=== PATIENT | male | born 1955 | race African-American/Black ===

== ENCOUNTER 2023-10-24 16:31 | Inpatient (IN) | payer MEDICARE ==
[2023-10-24 17:22] LABS: #Monocytes 0.7 thou/uL (0.11-0.59); #Neutrophils 5.6 thou/uL (1.40-6.50); %Basophils 0.4 % (0.0-1.0); %Eosinophils 0.5 % (0.0-10.0); %Lymphocytes 20.3 % (21.0-51.0); %Monocytes 8.8 % (0.0-10.0); %Neutrophils 69.9 % (42.0-75.0); Hematocrit 35.4 % (42.0-52.0); Hemoglobin 10.5 g/dL (14.0-18.0); Mean Corpuscular HGB CONC 29.7 g/dL (32.0-36.0); Mean Corpuscular Hemoglobin 24.5 pg (27.0-31.0); Mean Corpuscular Volume 82.7 fl (78.0-98.0); Platelet Count 283 10x3/uL (130-400); RBC Distribution Width 17.7 % (11.5-14.5); Red Blood Cell (RBC) Count 4.28 mill/uL (4.70-6.10)
[2023-10-24 17:43] LABS: ALT (SGPT) 26 U/L (8-55); AST (SGOT) 30 U/L (5-34); Albumin 3.7 g/dL (3.4-4.8); Alkaline Phosphatase 112 U/L (40-110); Anion Gap 20 mmol/L (10-20); BUN (Urea Nitrogen) 44 mg/dL (8.4-25.7); Bilirubin, Total 1.8 mg/dL (0.2-1.2); Calc. Creatinine Clearance 0 mL/min (70-130); Calcium 9.2 mg/dL (7.8-10.44); Carbon Dioxide 22 mmol/L (23-31); Chloride 101 mmol/L (98-107); Estimated GFR 21; Globulin 3.3 g/dL (2.4-3.5); Glucose 256 mg/dL (80-115); Potassium 4.5 mmol/L (3.5-5.1); Sodium 138 mmol/L (136-145)
[2023-10-24 17:47] LABS: Troponin I 0.037 ng/mL (< 0.028)
[2023-10-24] MEDS ORDERED: Furosemide 20 MG (2 mL) VIAL ONE (17:53)
[2023-10-24] MEDS ORDERED: Dextrose 50% Abboject 50 ML SYRINGE SLOW IVP PRN (19:48)
[2023-10-24] MEDS ORDERED: Dextrose 5% in Water 1,000 ML IV PRN (19:48)
[2023-10-24] MEDS ORDERED: Acetaminophen 650 MG Suppository PR PRN (19:48)
[2023-10-24] MEDS ORDERED: Ondansetron ODT 4 MG TAB PO PRN (19:48)
[2023-10-24] MEDS ORDERED: Ondansetron PF 4 MG/2 ML Vial IVP PRN (19:48)
[2023-10-24] MEDS ORDERED: Glucagon 1 MG/ML KIT IM PRN (19:48)
[2023-10-24 21:23] LABS: Troponin I 0.049 ng/mL (< 0.028)
[2023-10-24 21:45] LABS: INR-International Normal Ratio 2.3; Prothrombin Time 26.2 sec (12.0-14.7)
[2023-10-24] MEDS ORDERED: Warfarin Sodium 7.5 MG TAB PO SCH (23:00)
[2023-10-24 23:25] LABS: Troponin I 0.037 ng/mL (< 0.028)
[2023-10-25 04:47] LABS: Bacteria/HPF None Seen HPF (None Seen); Bilirubin Negative (Negative); Blood, Urine Trace (Negative); Clarity Clear (Clear); Glucose, Urine (Dipstick) Greater than 1000 mg/dL (Negative); Ketone, Urine Negative (Negative); Leukocyte Negative Leu/uL (Negative); Nitrite Negative (Negative); Protein, Urine (Dipstick) 30 mg/dL (Neg-Trace); RBC/HPF 0-3 HPF (0-3); Specific Gravity, Urine 1.018 (1.002-1.036); Squamous Epithelial 0-3 HPF (0-3); Urobilinogen Normal mg/dL (Less than 2); pH, Urine 5.5 (5.0-9.0)
[2023-10-25 05:13] LABS: #Eosinphils 0.1 thou/uL (0.0-0.7); #Monocytes 0.7 thou/uL (0.11-0.59); #Neutrophils 4.5 thou/uL (1.40-6.50); %Basophils 0.4 % (0.0-1.0); %Eosinophils 1.2 % (0.0-10.0); %Monocytes 10.6 % (0.0-10.0); %Neutrophils 65.2 % (42.0-75.0); Hematocrit 34.4 % (42.0-52.0); Mean Corpuscular HGB CONC 29.1 g/dL (32.0-36.0); Mean Corpuscular Hemoglobin 24.3 pg (27.0-31.0); Mean Corpuscular Volume 83.5 fl (78.0-98.0); Mean Platelet Volume 10.8 fL (7.4-10.4); Platelet Count 263 10x3/uL (130-400); RBC Distribution Width 18.1 % (11.5-14.5); Red Blood Cell (RBC) Count 4.12 mill/uL (4.70-6.10); White Blood Cell (WBC) Count 6.9 10x3/uL (4.8-10.8)
[2023-10-25 05:37] LABS: Anion Gap 16 mmol/L (10-20); BUN (Urea Nitrogen) 48 mg/dL (8.4-25.7); Calc. Creatinine Clearance 40 mL/min (70-130); Calcium 8.5 mg/dL (7.8-10.44); Carbon Dioxide 23 mmol/L (23-31); Chloride 102 mmol/L (98-107); Estimated GFR 21; Glucose 350 mg/dL (80-115); Potassium 4.4 mmol/L (3.5-5.1); Sodium 137 mmol/L (136-145)
[2023-10-25] MEDS: Furosemide 40 MG (4 mL) VIAL SLOW IVP SCH ×2 (05:46→17:06)
[2023-10-25 05:47] LABS: INR-International Normal Ratio 2.2
[2023-10-25] MEDS: HumaLOG 300 UNITS/3 ML VIAL SC PRN ×4 (06:02→21:57)
[2023-10-25] MEDS: Amiodarone 200 MG TAB PO SCH (10:55)
[2023-10-25] MEDS: Aspirin 81 mg Enteric Coated Tablet PO SCH (10:55)
[2023-10-25] MEDS: Empagliflozin 10 MG TAB PO SCH (10:55)
[2023-10-25] MEDS: Insulin Glargine 30 UNITS/0.3 ML VIAL SC SCH ×3 (10:55→18:31)
[2023-10-25] MEDS: Albumin 25% 25 GM (100 mL) BOT IVPB SCH ×2 (14:14→18:30)
[2023-10-25] MEDS ORDERED: Warfarin Sodium 7.5 MG TAB PO SCH (17:00)
[2023-10-25] MEDS: Rosuvastatin 20 MG TAB PO SCH (21:56)
[2023-10-25 21:57] LABS: RBC Count-Automated (BF) Greater than 890000 /cu.mm; WBC/Nucleated-Auto (BF) 632 /cu.mm
[2023-10-25] MEDS: Latanoprost 0.005% Ophth Soln 2.5 ml Bottle EA EYE SCH (21:58)
[2023-10-25 22:05] LABS: Body Fluid Source Thoracentesis Fluid; Tube # EDTA
[2023-10-25] MEDS: Allopurinol 100 MG TAB PO SCH (22:05)
[2023-10-25 22:06] LABS: BF Color Red; Clarity Cloudy/Turbid (Clear)
[2023-10-25 22:08] LABS: BF Segmented Neutrophils 23 %; Cell Count Non Hematic 65 %; Eosinophils 1 %; Lymphocytes 11 %
[2023-10-26] MEDS: Albumin 25% 25 GM (100 mL) BOT IVPB SCH ×2 (00:44→05:20)
[2023-10-26] MEDS: Furosemide 40 MG (4 mL) VIAL SLOW IVP SCH ×2 (05:20→14:01)
[2023-10-26 05:47] LABS: #Eosinphils 0.1 thou/uL (0.0-0.7); #Monocytes 0.8 thou/uL (0.11-0.59); #Neutrophils 3.9 thou/uL (1.40-6.50); %Basophils 0.5 % (0.0-1.0); %Eosinophils 1.5 % (0.0-10.0); %Lymphocytes 25.2 % (21.0-51.0); %Monocytes 12.8 % (0.0-10.0); %Neutrophils 59.8 % (42.0-75.0); Hematocrit 36.4 % (42.0-52.0); Hemoglobin 10.6 g/dL (14.0-18.0); Mean Corpuscular HGB CONC 29.1 g/dL (32.0-36.0); Mean Corpuscular Hemoglobin 24.4 pg (27.0-31.0); Mean Corpuscular Volume 83.7 fl (78.0-98.0); Mean Platelet Volume 12.3 fL (7.4-10.4); Platelet Count 184 10x3/uL (130-400); RBC Distribution Width 18.1 % (11.5-14.5); Red Blood Cell (RBC) Count 4.35 mill/uL (4.70-6.10); White Blood Cell (WBC) Count 6.6 10x3/uL (4.8-10.8)
[2023-10-26 05:59] LABS: Anion Gap 16 mmol/L (10-20); BUN (Urea Nitrogen) 51 mg/dL (8.4-25.7); Calc. Creatinine Clearance 43 mL/min (70-130); Carbon Dioxide 24 mmol/L (23-31); Chloride 103 mmol/L (98-107); Estimated GFR 22; Glucose 124 mg/dL (80-115); Magnesium 2.3 mg/dL (1.6-2.6); Potassium 4.1 mmol/L (3.5-5.1); Sodium 139 mmol/L (136-145)
[2023-10-26 07:19] LABS: INR-International Normal Ratio 2.4; Prothrombin Time 27.3 sec (12.0-14.7)
[2023-10-26] MEDS: Insulin Glargine 30 UNITS/0.3 ML VIAL SC SCH ×3 (09:13→17:29)
[2023-10-26] MEDS: Allopurinol 100 MG TAB PO SCH ×2 (09:14→21:26)
[2023-10-26] MEDS: Amiodarone 200 MG TAB PO SCH (09:15)
[2023-10-26] MEDS: Empagliflozin 10 MG TAB PO SCH (09:15)
[2023-10-26] MEDS: Aspirin 81 mg Enteric Coated Tablet PO SCH (09:15)
[2023-10-26] MEDS: HumaLOG 300 UNITS/3 ML VIAL SC PRN ×3 (14:00→21:25)
[2023-10-26] MEDS ORDERED: Warfarin Sodium 3.75 MG HALF.TAB PO SCH (17:00)
[2023-10-26] MEDS ORDERED: Warfarin Sodium 7.5 MG TAB PO SCH (17:00)
[2023-10-26 19:45] LABS: Prothrombin Time 23.2 sec (12.0-14.7)
[2023-10-26 19:46] LABS: PTT 33.8 sec (22.9-36.1)
[2023-10-26] MEDS: Latanoprost 0.005% Ophth Soln 2.5 ml Bottle EA EYE SCH (21:24)
[2023-10-26] MEDS: Enoxaparin 120 MG/0.8 ML SYRINGE SC SCH (21:25)
[2023-10-26] MEDS: Rosuvastatin 20 MG TAB PO SCH (21:26)
[2023-10-27] MEDS: Furosemide 40 MG (4 mL) VIAL SLOW IVP SCH ×2 (06:21→13:25)
[2023-10-27 07:20] LABS: #Eosinphils 0.1 thou/uL (0.0-0.7); #Monocytes 0.8 thou/uL (0.11-0.59); #Neutrophils 4.1 thou/uL (1.40-6.50); %Basophils 0.5 % (0.0-1.0); %Eosinophils 1.1 % (0.0-10.0); %Lymphocytes 22.6 % (21.0-51.0); %Monocytes 12.5 % (0.0-10.0); %Neutrophils 63.1 % (42.0-75.0); Hematocrit 36.4 % (42.0-52.0); Hemoglobin 10.5 g/dL (14.0-18.0); Mean Corpuscular HGB CONC 28.8 g/dL (32.0-36.0); Mean Corpuscular Hemoglobin 24.2 pg (27.0-31.0); Mean Corpuscular Volume 84.1 fl (78.0-98.0); Mean Platelet Volume 10.8 fL (7.4-10.4); Platelet Count 238 10x3/uL (130-400); RBC Distribution Width 18.2 % (11.5-14.5); Red Blood Cell (RBC) Count 4.33 mill/uL (4.70-6.10); White Blood Cell (WBC) Count 6.4 10x3/uL (4.8-10.8)
[2023-10-27 07:50] LABS: INR-International Normal Ratio 2.5
[2023-10-27 07:54] LABS: Anion Gap 15 mmol/L (10-20); BUN (Urea Nitrogen) 52 mg/dL (8.4-25.7); Calc. Creatinine Clearance 41 mL/min (70-130); Calcium 9.2 mg/dL (7.8-10.44); Carbon Dioxide 25 mmol/L (23-31); Chloride 104 mmol/L (98-107); Estimated GFR 21; Glucose 135 mg/dL (80-115); Magnesium 2.2 mg/dL (1.6-2.6); Potassium 3.6 mmol/L (3.5-5.1); Sodium 140 mmol/L (136-145)
[2023-10-27] MEDS: Insulin Glargine 30 UNITS/0.3 ML VIAL SC SCH ×3 (08:49→19:37)
[2023-10-27] MEDS: Allopurinol 100 MG TAB PO SCH ×2 (08:50→20:27)
[2023-10-27] MEDS: Aspirin 81 mg Enteric Coated Tablet PO SCH (08:50)
[2023-10-27] MEDS: Enoxaparin 120 MG/0.8 ML SYRINGE SC SCH (08:50)
[2023-10-27] MEDS: Amiodarone 200 MG TAB PO SCH (08:51)
[2023-10-27] MEDS: Empagliflozin 10 MG TAB PO SCH (08:51)
[2023-10-27] MEDS: Acetaminophen 325 MG TAB PO PRN (09:02)
[2023-10-27] MEDS: Albumin 25% 25 GM (100 mL) BOT IVPB SCH ×3 (12:09→23:54)
[2023-10-27] MEDS: HumaLOG 300 UNITS/3 ML VIAL SC PRN ×3 (13:26→22:08)
[2023-10-27] MEDS ORDERED: Warfarin Sodium 3.75 MG HALF.TAB PO SCH (17:00)
[2023-10-27] MEDS: HumaLOG 300 UNITS/3 ML VIAL SC SCH (19:37)
[2023-10-27] MEDS: Latanoprost 0.005% Ophth Soln 2.5 ml Bottle EA EYE SCH (20:25)
[2023-10-27] MEDS: Rosuvastatin 20 MG TAB PO SCH (20:25)
[2023-10-28 05:12] LABS: #Eosinphils 0.1 thou/uL (0.0-0.7); #Monocytes 0.6 thou/uL (0.11-0.59); #Neutrophils 4.4 thou/uL (1.40-6.50); %Basophils 0.6 % (0.0-1.0); %Eosinophils 1.8 % (0.0-10.0); %Lymphocytes 21.9 % (21.0-51.0); %Monocytes 9.1 % (0.0-10.0); %Neutrophils 66.4 % (42.0-75.0); Hematocrit 34.6 % (42.0-52.0); Hemoglobin 10.1 g/dL (14.0-18.0); Mean Corpuscular HGB CONC 29.2 g/dL (32.0-36.0); Mean Corpuscular Hemoglobin 23.8 pg (27.0-31.0); Mean Platelet Volume 10.9 fL (7.4-10.4); Platelet Count 225 10x3/uL (130-400); RBC Distribution Width 17.9 % (11.5-14.5); Red Blood Cell (RBC) Count 4.25 mill/uL (4.70-6.10); White Blood Cell (WBC) Count 6.6 10x3/uL (4.8-10.8)
[2023-10-28 05:33] LABS: Anion Gap 15 mmol/L (10-20); BUN (Urea Nitrogen) 51 mg/dL (8.4-25.7); Calc. Creatinine Clearance 42 mL/min (70-130); Calcium 8.9 mg/dL (7.8-10.44); Carbon Dioxide 24 mmol/L (23-31); Chloride 102 mmol/L (98-107); Estimated GFR 22; Glucose 155 mg/dL (80-115); Magnesium 2.2 mg/dL (1.6-2.6); Potassium 3.4 mmol/L (3.5-5.1); Sodium 138 mmol/L (136-145)
[2023-10-28 05:46] LABS: INR-International Normal Ratio 2.5
[2023-10-28] MEDS: Albumin 25% 25 GM (100 mL) BOT IVPB SCH (05:48)
[2023-10-28] MEDS: Furosemide 40 MG (4 mL) VIAL SLOW IVP SCH ×2 (05:48→14:32)
[2023-10-28 06:04] LABS: Mean Corpuscular Volume 81.4 fl (78.0-98.0)
[2023-10-28] MEDS: Acetaminophen 325 MG TAB PO PRN ×2 (06:07→20:43)
[2023-10-28] MEDS: Insulin Glargine 30 UNITS/0.3 ML VIAL SC SCH ×3 (08:28→18:56)
[2023-10-28] MEDS: HumaLOG 300 UNITS/3 ML VIAL SC SCH ×3 (08:28→18:53)
[2023-10-28] MEDS: Allopurinol 100 MG TAB PO SCH ×2 (08:29→20:43)
[2023-10-28] MEDS: Aspirin 81 mg Enteric Coated Tablet PO SCH (08:29)
[2023-10-28] MEDS: Amiodarone 200 MG TAB PO SCH (08:29)
[2023-10-28] MEDS: Empagliflozin 10 MG TAB PO SCH (08:29)
[2023-10-28] MEDS: HumaLOG 300 UNITS/3 ML VIAL SC PRN ×4 (08:31→20:44)
[2023-10-28] MEDS ORDERED: Potassium Chloride 20 MEQ TAB PO SCH (10:45)
[2023-10-28] MEDS: Latanoprost 0.005% Ophth Soln 2.5 ml Bottle EA EYE SCH (20:43)
[2023-10-28] MEDS: Rosuvastatin 20 MG TAB PO SCH (20:43)
[2023-10-29 04:51] LABS: INR-International Normal Ratio 2.1; Prothrombin Time 24.6 sec (12.0-14.7)
[2023-10-29 04:59] LABS: Anion Gap 17 mmol/L (10-20); BUN (Urea Nitrogen) 50 mg/dL (8.4-25.7); Calc. Creatinine Clearance 43 mL/min (70-130); Calcium 9.1 mg/dL (7.8-10.44); Carbon Dioxide 26 mmol/L (23-31); Chloride 102 mmol/L (98-107); Estimated GFR 22; Glucose 90 mg/dL (80-115); Potassium 3.6 mmol/L (3.5-5.1); Sodium 141 mmol/L (136-145)
[2023-10-29] MEDS: Furosemide 40 MG (4 mL) VIAL SLOW IVP SCH ×2 (05:46→14:53)
[2023-10-29] MEDS: Aspirin 81 mg Enteric Coated Tablet PO SCH (08:19)
[2023-10-29] MEDS: Empagliflozin 10 MG TAB PO SCH (08:20)
[2023-10-29] MEDS: Amiodarone 200 MG TAB PO SCH (08:20)
[2023-10-29] MEDS: Allopurinol 100 MG TAB PO SCH ×2 (08:20→20:18)
[2023-10-29] MEDS: Insulin Glargine 30 UNITS/0.3 ML VIAL SC SCH ×3 (08:21→18:23)
[2023-10-29] MEDS: HumaLOG 300 UNITS/3 ML VIAL SC SCH ×3 (08:29→18:23)
[2023-10-29] MEDS: Acetaminophen 325 MG TAB PO PRN (20:18)
[2023-10-29] MEDS: Latanoprost 0.005% Ophth Soln 2.5 ml Bottle EA EYE SCH (20:18)
[2023-10-29] MEDS: Rosuvastatin 20 MG TAB PO SCH (20:19)
[2023-10-30] MEDS: Furosemide 40 MG (4 mL) VIAL SLOW IVP SCH ×2 (05:11→14:52)
[2023-10-30] MEDS ORDERED: CEFAZOLIN 2 GM in Sodium Chloride 0.9% 100 ML IVPB SCH (06:00)
[2023-10-30] MEDS ORDERED: Bupivacaine PF 0.5% 30 ML VIAL ONE (06:18)
[2023-10-30] MEDS ORDERED: EPINEPHrine 1 MG/ML VIAL ONE (06:18)
[2023-10-30] MEDS ORDERED: Lidocaine 1% MPF 2 ML VIAL ONE (07:02)
[2023-10-30] MEDS ORDERED: CEFAZOLIN 2 GM VIAL ONE (07:24)
[2023-10-30] MEDS ORDERED: Sodium Chloride 0.9% 100 ML ONE (07:24)
[2023-10-30] MEDS ORDERED: PROPOFOL 20 ML ONE (07:26)
[2023-10-30] MEDS ORDERED: Ketamine In 0.9 % NaCl 50 MG/5 ML SYRINGE ONE (07:26)
[2023-10-30] MEDS ORDERED: Norepinephrine 4 MG/4 ML VIAL ONE (07:27)
[2023-10-30] MEDS ORDERED: Ondansetron PF 4 MG/2 ML Vial ONE (07:27)
[2023-10-30] MEDS ORDERED: Rocuronium Bromide 10 MG/ML (10ML VIAL) ONE (07:27)
[2023-10-30] MEDS ORDERED: Lidocaine 1% PF 5 ML VIAL ONE (07:27)
[2023-10-30] MEDS ORDERED: fentaNYL 50 mcg/mL 1 mL Vial ONE ×4 (08:13→16:12)
[2023-10-30] MEDS ORDERED: SUGAMMADEX SODIUM 200 MG/2 ML VIAL ONE (08:13)
[2023-10-30] MEDS ORDERED: traMADol HCl 50 MG TAB PO PRN (08:24)
[2023-10-30] MEDS ORDERED: fentaNYL 50 mcg/mL 1 mL Vial SLOW IVP PRN (08:24)
[2023-10-30] MEDS ORDERED: Ondansetron HCl/PF 4 MG/2 ML Vial IVP PRN (08:45)
[2023-10-30] MEDS ORDERED: Promethazine HCl 25 MG/ML VIAL IM PRN (08:45)
[2023-10-30] MEDS ORDERED: Albumin 5% 0 ML ONE ×2 (09:16→23:51)
[2023-10-30] MEDS ORDERED: Albumin 5% 250 ML ONE ×2 (09:18→19:30)
[2023-10-30] MEDS ORDERED: ePHEDrine Sulfate 50 MG/10 ML VIAL ONE (09:26)
[2023-10-30] MEDS ORDERED: Furosemide 20 MG (2 mL) VIAL ONE ×3 (09:59→14:50)
[2023-10-30 10:07] LABS: Actual Bicarbonate (HCO3a) 23.8 mEq/L (22-28); Base Excess (BEa) -3.1 mEq/L (-2.0 to +3.0); CO2 Tension 50.8 mmHg (35.0-45.0); Calcium, Ionized (arterial) 1.16 mmol/L (1.12-1.30); Carboxyhemoglobin (COHb) 0.8 gm% (0.0-3.0); Hematocrit-ABG 35 % (42.0-52.0); Hemoglobin (Hb) 11.9 g/dL (14.0-18.0); O2 Tension (PaO2), arterial 89.5 mmHg (> 80.0); Potassium - ABG Lab 3.93 mmol/L (3.70-5.30); pH, Arterial 7.289 (7.35-7.45)
[2023-10-30] MEDS ORDERED: Ipratropium/Albuterol 3 ML NEB ONE (10:18)
[2023-10-30 10:20] LABS: Puncture Site RBA
[2023-10-30 11:04] LABS: #Monocytes 0.6 thou/uL (0.11-0.59); #Neutrophils 7.1 thou/uL (1.40-6.50); %Basophils 0.2 % (0.0-1.0); %Eosinophils 0.3 % (0.0-10.0); %Lymphocytes 17.2 % (21.0-51.0); %Monocytes 6.3 % (0.0-10.0); %Neutrophils 75.6 % (42.0-75.0); Hemoglobin 10.7 g/dL (14.0-18.0); Mean Corpuscular HGB CONC 28.2 g/dL (32.0-36.0); Mean Corpuscular Hemoglobin 23.9 pg (27.0-31.0); Mean Corpuscular Volume 84.8 fl (78.0-98.0); Mean Platelet Volume 10.6 fL (7.4-10.4); Platelet Count 282 10x3/uL (130-400); RBC Distribution Width 18.1 % (11.5-14.5); Red Blood Cell (RBC) Count 4.48 mill/uL (4.70-6.10); White Blood Cell (WBC) Count 9.4 10x3/uL (4.8-10.8)
[2023-10-30 11:19] LABS: Anion Gap 16 mmol/L (10-20); BUN (Urea Nitrogen) 57 mg/dL (8.4-25.7); Calc. Creatinine Clearance 38 mL/min (70-130); Calcium 8.9 mg/dL (7.8-10.44); Carbon Dioxide 25 mmol/L (23-31); Chloride 102 mmol/L (98-107); Estimated GFR 19; Glucose 119 mg/dL (80-115); Potassium 3.8 mmol/L (3.5-5.1)
[2023-10-30 11:25] LABS: Troponin I 0.052 ng/mL (< 0.028)
[2023-10-30 11:26] LABS: Sodium 141 mmol/L (136-145)
[2023-10-30] MEDS: Empagliflozin 10 MG TAB PO SCH (11:48)
[2023-10-30] MEDS: Allopurinol 100 MG TAB PO SCH ×2 (11:48→21:52)
[2023-10-30] MEDS: Insulin Glargine 30 UNITS/0.3 ML VIAL SC SCH ×3 (11:49→20:09)
[2023-10-30] MEDS: HumaLOG 300 UNITS/3 ML VIAL SC SCH ×3 (11:50→20:08)
[2023-10-30 12:27] LABS: CellaVision Operator ID LAB.GE; Platelet Adequacy Comment Platelets Normal; Polychromasia MODERATE = 3-4 cells HPF (0-2)
[2023-10-30] MEDS: Amiodarone 200 MG TAB PO SCH (14:48)
[2023-10-30] MEDS: Aspirin 81 mg Enteric Coated Tablet PO SCH (14:49)
[2023-10-30 16:12] LABS: INR-International Normal Ratio 1.7
[2023-10-30] MEDS: fentaNYL 50 mcg/mL 1 mL Vial SLOW IVP PRN (16:13)
[2023-10-30 16:27] LABS: Anion Gap 16 mmol/L (10-20); BUN (Urea Nitrogen) 59 mg/dL (8.4-25.7); Calc. Creatinine Clearance 39 mL/min (70-130); Carbon Dioxide 25 mmol/L (23-31); Chloride 102 mmol/L (98-107); Estimated GFR 20; Glucose 124 mg/dL (80-115); Potassium 4.2 mmol/L (3.5-5.1); Sodium 139 mmol/L (136-145)
[2023-10-30] MEDS: Albumin 25% 25 GM (100 mL) BOT IVPB SCH (19:26)
[2023-10-30] MEDS: HumaLOG 300 UNITS/3 ML VIAL SC PRN (20:08)
[2023-10-30] MEDS: Latanoprost 0.005% Ophth Soln 2.5 ml Bottle EA EYE SCH (21:27)
[2023-10-30] MEDS: Rosuvastatin 20 MG TAB PO SCH (21:52)
[2023-10-31] MEDS: Albumin 25% 25 GM (100 mL) BOT IVPB SCH ×3 (00:10→12:45)
[2023-10-31] MEDS: fentaNYL 50 mcg/mL 1 mL Vial SLOW IVP PRN (01:57)
[2023-10-31] MEDS ORDERED: fentaNYL 50 mcg/mL 1 mL Vial ONE (01:57)
[2023-10-31 03:48] LABS: #Monocytes 0.9 thou/uL (0.11-0.59); #Neutrophils 7.1 thou/uL (1.40-6.50); %Basophils 0.2 % (0.0-1.0); %Eosinophils 0.2 % (0.0-10.0); %Monocytes 9.6 % (0.0-10.0); %Neutrophils 78.8 % (42.0-75.0); Hemoglobin 9.2 g/dL (14.0-18.0); Mean Corpuscular HGB CONC 29.7 g/dL (32.0-36.0); Mean Corpuscular Hemoglobin 24.2 pg (27.0-31.0); Mean Corpuscular Volume 81.6 fl (78.0-98.0); Mean Platelet Volume 11.3 fL (7.4-10.4); Platelet Count 215 10x3/uL (130-400); RBC Distribution Width 18.2 % (11.5-14.5)
[2023-10-31] MEDS ORDERED: traMADol HCl 50 MG TAB ONE ×2 (03:51→07:38)
[2023-10-31] MEDS: traMADol HCl 50 MG TAB PO PRN ×2 (03:53→07:42)
[2023-10-31 04:07] LABS: INR-International Normal Ratio 1.8; Prothrombin Time 21.7 sec (12.0-14.7)
[2023-10-31 04:13] LABS: BUN (Urea Nitrogen) 59 mg/dL (8.4-25.7); Calc. Creatinine Clearance 39 mL/min (70-130); Calcium 8.5 mg/dL (7.8-10.44); Carbon Dioxide 22 mmol/L (23-31); Chloride 101 mmol/L (98-107); Estimated GFR 20; Glucose 390 mg/dL (80-115); Potassium 4.2 mmol/L (3.5-5.1); Sodium 138 mmol/L (136-145)
[2023-10-31 04:16] LABS: Anion Gap 19 mmol/L (10-20)
[2023-10-31] MEDS ORDERED: Furosemide 20 MG (2 mL) VIAL ONE (05:59)
[2023-10-31] MEDS: Furosemide 40 MG (4 mL) VIAL SLOW IVP SCH (06:06)
[2023-10-31] MEDS ORDERED: Insulin Glargine 30 UNITS/0.3 ML VIAL SC SCH ×2 (08:00→21:00)
[2023-10-31] MEDS: Amiodarone 200 MG TAB PO SCH (08:10)
[2023-10-31] MEDS: Allopurinol 100 MG TAB PO SCH ×2 (08:10→22:39)
[2023-10-31] MEDS: Aspirin 81 mg Enteric Coated Tablet PO SCH (08:11)
[2023-10-31] MEDS: Empagliflozin 10 MG TAB PO SCH (08:11)
[2023-10-31] MEDS: HumaLOG 300 UNITS/3 ML VIAL SC SCH ×3 (08:16→22:35)
[2023-10-31] MEDS ORDERED: Albumin 5% 0 ML ONE (11:43)
[2023-10-31] MEDS: Furosemide 40 MG TAB PO SCH (13:37)
[2023-10-31] MEDS: Latanoprost 0.005% Ophth Soln 2.5 ml Bottle EA EYE SCH (22:38)
[2023-10-31] MEDS: Rosuvastatin 20 MG TAB PO SCH (22:39)
[2023-11-01 04:49] LABS: Platelet Count 228 10x3/uL (130-400)
[2023-11-01 05:03] LABS: INR-International Normal Ratio 1.7; Prothrombin Time 20.8 sec (12.0-14.7)
[2023-11-01 05:26] LABS: Anion Gap 16 mmol/L (10-20); BUN (Urea Nitrogen) 61 mg/dL (8.4-25.7); Calc. Creatinine Clearance 39 mL/min (70-130); Carbon Dioxide 25 mmol/L (23-31); Chloride 100 mmol/L (98-107); Potassium 4.6 mmol/L (3.5-5.1); Sodium 136 mmol/L (136-145)
[2023-11-01 05:27] LABS: Calcium 9.3 mg/dL (7.8-10.44); Estimated GFR 20; Glucose 193 mg/dL (80-115)
[2023-11-01] MEDS: Furosemide 40 MG TAB PO SCH ×2 (05:56→08:16)
[2023-11-01] MEDS ORDERED: Furosemide 40 MG (4 mL) VIAL SLOW IVP SCH (06:00)
[2023-11-01] MEDS: Allopurinol 100 MG TAB PO SCH ×2 (08:16→21:14)
[2023-11-01] MEDS: Amiodarone 200 MG TAB PO SCH (08:17)
[2023-11-01] MEDS: Aspirin 81 mg Enteric Coated Tablet PO SCH (08:17)
[2023-11-01] MEDS: Empagliflozin 10 MG TAB PO SCH (08:17)
[2023-11-01] MEDS: HumaLOG 300 UNITS/3 ML VIAL SC SCH ×3 (08:18→18:16)
[2023-11-01] MEDS: Insulin Glargine 30 UNITS/0.3 ML VIAL SC SCH ×2 (08:22→21:14)
[2023-11-01] MEDS ORDERED: [UNRECOGNIZED DRUG - REMARK] PO SCH (09:00)
[2023-11-01] MEDS: HumaLOG 300 UNITS/3 ML VIAL SC PRN ×2 (12:42→18:17)
[2023-11-01] MEDS: Senokot S 8.6-50 MG TAB PO PRN (16:02)
[2023-11-01] MEDS: Rosuvastatin 20 MG TAB PO SCH (21:14)
[2023-11-01] MEDS: Latanoprost 0.005% Ophth Soln 2.5 ml Bottle EA EYE SCH (21:14)
[2023-11-02 05:17] LABS: #Eosinphils 0.2 thou/uL (0.0-0.7); #Monocytes 1.3 thou/uL (0.11-0.59); #Neutrophils 5.7 thou/uL (1.40-6.50); %Basophils 0.3 % (0.0-1.0); %Eosinophils 1.9 % (0.0-10.0); %Lymphocytes 25.6 % (21.0-51.0); %Monocytes 13.5 % (0.0-10.0); %Neutrophils 58.4 % (42.0-75.0); Hematocrit 32.2 % (42.0-52.0); Hematocrit 33.3 % (42.0-52.0); Hemoglobin 9.5 g/dL (14.0-18.0); Hemoglobin 9.7 g/dL (14.0-18.0); Mean Corpuscular HGB CONC 29.1 g/dL (32.0-36.0); Mean Corpuscular Hemoglobin 23.6 pg (27.0-31.0); Mean Platelet Volume 10.8 fL (7.4-10.4); Platelet Count 255 10x3/uL (130-400); Platelet Count 258 10x3/uL (130-400); RBC Distribution Width 18.5 % (11.5-14.5); Red Blood Cell (RBC) Count 4.11 mill/uL (4.70-6.10); White Blood Cell (WBC) Count 9.8 10x3/uL (4.8-10.8)
[2023-11-02 05:30] LABS: INR-International Normal Ratio 1.7; Prothrombin Time 20.8 sec (12.0-14.7)
[2023-11-02 05:47] LABS: Anion Gap 16 mmol/L (10-20); BUN (Urea Nitrogen) 66 mg/dL (8.4-25.7); Calc. Creatinine Clearance 45 mL/min (70-130); Calcium 9.2 mg/dL (7.8-10.44); Carbon Dioxide 25 mmol/L (23-31); Chloride 100 mmol/L (98-107); Estimated GFR 21; Glucose 68 mg/dL (80-115); Potassium 3.9 mmol/L (3.5-5.1); Sodium 137 mmol/L (136-145)
[2023-11-02] MEDS: hydrALAZINE 25 MG TAB PO SCH ×3 (07:50→21:10)
[2023-11-02] MEDS: Furosemide 40 MG TAB PO SCH ×2 (07:50→13:30)
[2023-11-02] MEDS: Allopurinol 100 MG TAB PO SCH ×2 (07:50→21:10)
[2023-11-02] MEDS: Aspirin 81 mg Enteric Coated Tablet PO SCH (07:50)
[2023-11-02] MEDS: Amiodarone 200 MG TAB PO SCH (07:50)
[2023-11-02] MEDS: Empagliflozin 10 MG TAB PO SCH (07:50)
[2023-11-02] MEDS: Senokot S 8.6-50 MG TAB PO PRN (11:24)
[2023-11-02] MEDS: HumaLOG 300 UNITS/3 ML VIAL SC SCH ×3 (11:46→17:55)
[2023-11-02] MEDS: HumaLOG 300 UNITS/3 ML VIAL SC PRN (13:31)
[2023-11-02] MEDS ORDERED: Polyethylene Glycol 3350 17 GM Packet PO SCH (16:30)
[2023-11-02] MEDS: Insulin Glargine 30 UNITS/0.3 ML VIAL SC SCH (21:10)
[2023-11-02] MEDS: Rosuvastatin 20 MG TAB PO SCH (21:10)
[2023-11-02] MEDS: Latanoprost 0.005% Ophth Soln 2.5 ml Bottle EA EYE SCH (21:11)
[2023-11-02] MEDS: Lidocaine 4% Topical Sol 50 ML BOT TOP SCH (21:12)
[2023-11-03 04:02] LABS: #Eosinphils 0.2 thou/uL (0.0-0.7); #Monocytes 0.8 thou/uL (0.11-0.59); #Neutrophils 4.7 thou/uL (1.40-6.50); %Basophils 0.4 % (0.0-1.0); %Eosinophils 2.2 % (0.0-10.0); %Lymphocytes 24.4 % (21.0-51.0); %Neutrophils 61.6 % (42.0-75.0); Hematocrit 32.9 % (42.0-52.0); Hemoglobin 9.7 g/dL (14.0-18.0); Mean Corpuscular HGB CONC 29.5 g/dL (32.0-36.0); Mean Corpuscular Hemoglobin 23.5 pg (27.0-31.0); Mean Corpuscular Volume 79.9 fl (78.0-98.0); Mean Platelet Volume 10.4 fL (7.4-10.4); Platelet Count 248 10x3/uL (130-400); RBC Distribution Width 18.4 % (11.5-14.5); Red Blood Cell (RBC) Count 4.12 mill/uL (4.70-6.10); White Blood Cell (WBC) Count 7.6 10x3/uL (4.8-10.8)
[2023-11-03 04:20] LABS: Anion Gap 15 mmol/L (10-20); BUN (Urea Nitrogen) 70 mg/dL (8.4-25.7); Calc. Creatinine Clearance 43 mL/min (70-130); Calcium 8.8 mg/dL (7.8-10.44); Carbon Dioxide 26 mmol/L (23-31); Chloride 98 mmol/L (98-107); Estimated GFR 20; Glucose 119 mg/dL (80-115); Potassium 3.6 mmol/L (3.5-5.1); Sodium 135 mmol/L (136-145)
[2023-11-03 05:39] LABS: INR-International Normal Ratio 1.6; Prothrombin Time 19.2 sec (12.0-14.7)
[2023-11-03] MEDS ORDERED: Polyethylene Glycol 3350 17 GM Packet PO SCH (09:00)
[2023-11-03] MEDS: Furosemide 40 MG TAB PO SCH ×2 (09:54→14:43)
[2023-11-03] MEDS: Allopurinol 100 MG TAB PO SCH ×2 (09:54→20:45)
[2023-11-03] MEDS: Aspirin 81 mg Enteric Coated Tablet PO SCH (09:55)
[2023-11-03] MEDS: Empagliflozin 10 MG TAB PO SCH (09:55)
[2023-11-03] MEDS: Amiodarone 200 MG TAB PO SCH (09:55)
[2023-11-03] MEDS: hydrALAZINE 25 MG TAB PO SCH ×3 (09:55→20:45)
[2023-11-03] MEDS: HumaLOG 300 UNITS/3 ML VIAL SC SCH ×3 (09:56→18:29)
[2023-11-03] MEDS ORDERED: Lactulose 20 GM (30 mL) UDCUP PO SCH (14:30)
[2023-11-03] MEDS ORDERED: Bisacodyl 10 MG SUPP PR SCH (14:30)
[2023-11-03] MEDS: Lidocaine 4% Topical Sol 50 ML BOT TOP SCH ×2 (18:14→20:45)
[2023-11-03] MEDS: Latanoprost 0.005% Ophth Soln 2.5 ml Bottle EA EYE SCH (20:45)
[2023-11-03] MEDS: Insulin Glargine 30 UNITS/0.3 ML VIAL SC SCH (20:46)
[2023-11-03] MEDS: Rosuvastatin 20 MG TAB PO SCH (20:49)
[2023-11-04 04:52] LABS: #Eosinphils 0.1 thou/uL (0.0-0.7); #Neutrophils 4.5 thou/uL (1.40-6.50); %Basophils 0.3 % (0.0-1.0); %Eosinophils 1.6 % (0.0-10.0); %Lymphocytes 23.4 % (21.0-51.0); %Monocytes 13.1 % (0.0-10.0); %Neutrophils 61.5 % (42.0-75.0); Hematocrit 34.7 % (42.0-52.0); Hemoglobin 10.4 g/dL (14.0-18.0); Mean Corpuscular Hemoglobin 23.6 pg (27.0-31.0); Mean Corpuscular Volume 78.9 fl (78.0-98.0); Mean Platelet Volume 10.1 fL (7.4-10.4); Platelet Count 268 10x3/uL (130-400); RBC Distribution Width 18.5 % (11.5-14.5); White Blood Cell (WBC) Count 7.3 10x3/uL (4.8-10.8)
[2023-11-04 05:25] LABS: Anion Gap 20 mmol/L (10-20); BUN (Urea Nitrogen) 73 mg/dL (8.4-25.7); Calc. Creatinine Clearance 34 mL/min (70-130); Calcium 9.1 mg/dL (7.8-10.44); Carbon Dioxide 21 mmol/L (23-31); Chloride 100 mmol/L (98-107); Estimated GFR 18; Glucose 117 mg/dL (80-115); Potassium 4.3 mmol/L (3.5-5.1); Sodium 137 mmol/L (136-145)
[2023-11-04] MEDS: hydrALAZINE 25 MG TAB PO SCH ×3 (08:11→20:19)
[2023-11-04] MEDS: Amiodarone 200 MG TAB PO SCH (08:12)
[2023-11-04] MEDS: Allopurinol 100 MG TAB PO SCH ×2 (08:12→20:19)
[2023-11-04] MEDS: Aspirin 81 mg Enteric Coated Tablet PO SCH (08:12)
[2023-11-04] MEDS: Empagliflozin 10 MG TAB PO SCH (08:13)
[2023-11-04] MEDS: Polyethylene Glycol 3350 17 GM Packet PO SCH (08:13)
[2023-11-04] MEDS: Furosemide 40 MG TAB PO SCH (08:13)
[2023-11-04] MEDS: HumaLOG 300 UNITS/3 ML VIAL SC SCH ×3 (08:14→16:56)
[2023-11-04 10:20] LABS: Iron 20 ug/dL (65-175); Iron Binding Capacity, Total 315 mcg/dL (261-462)
[2023-11-04 10:21] LABS: ALT (SGPT) 62 U/L (8-55); AST (SGOT) 76 U/L (5-34); Albumin 4.1 g/dL (3.4-4.8); Alkaline Phosphatase 170 U/L (40-110); Bilirubin, Direct 0.6 mg/dL (0.1-0.3); Bilirubin, Total 1.4 mg/dL (0.2-1.2); Protein, Total 7.2 g/dL (5.8-8.1)
[2023-11-04] MEDS: Lidocaine 4% Topical Sol 50 ML BOT TOP SCH ×3 (11:39→21:43)
[2023-11-04] MEDS ORDERED: traMADol HCl 50 MG TAB PO PRN ×2 (11:45→11:46)
[2023-11-04] MEDS: Iron, Sodium Ferric Gluconate 250 MG in Sodium Chloride 0.9% 250 ML 250 ML IVPB SCH (13:41)
[2023-11-04 15:29] LABS: Creatinine, Urine 41.92 mg/dL (63-166)
[2023-11-04] MEDS: Latanoprost 0.005% Ophth Soln 2.5 ml Bottle EA EYE SCH (20:19)
[2023-11-04] MEDS: Rosuvastatin 20 MG TAB PO SCH (20:19)
[2023-11-04] MEDS: Insulin Glargine 30 UNITS/0.3 ML VIAL SC SCH (20:30)
[2023-11-05 05:24] LABS: Anion Gap 18 mmol/L (10-20); BUN (Urea Nitrogen) 72 mg/dL (8.4-25.7); Calc. Creatinine Clearance 34 mL/min (70-130); Carbon Dioxide 24 mmol/L (23-31); Chloride 100 mmol/L (98-107); Estimated GFR 18; Glucose 94 mg/dL (80-115); Potassium 4.3 mmol/L (3.5-5.1); Sodium 138 mmol/L (136-145)
[2023-11-05] MEDS ORDERED: Furosemide 40 MG TAB PO SCH (09:00)
[2023-11-05] MEDS: HumaLOG 300 UNITS/3 ML VIAL SC SCH ×4 (09:01→20:57)
[2023-11-05] MEDS: Allopurinol 100 MG TAB PO SCH ×2 (09:02→20:55)
[2023-11-05] MEDS: Polyethylene Glycol 3350 17 GM Packet PO SCH (09:02)
[2023-11-05] MEDS: Amiodarone 200 MG TAB PO SCH (09:02)
[2023-11-05] MEDS: Aspirin 81 mg Enteric Coated Tablet PO SCH (09:02)
[2023-11-05] MEDS: Lidocaine 4% Topical Sol 50 ML BOT TOP SCH ×3 (10:28→20:56)
[2023-11-05] MEDS: Iron, Sodium Ferric Gluconate 250 MG in Sodium Chloride 0.9% 250 ML 250 ML IVPB SCH (12:31)
[2023-11-05] MEDS: HumaLOG 300 UNITS/3 ML VIAL SC PRN (15:02)
[2023-11-05] MEDS: Rosuvastatin 20 MG TAB PO SCH (20:55)
[2023-11-05] MEDS: Latanoprost 0.005% Ophth Soln 2.5 ml Bottle EA EYE SCH (20:56)
[2023-11-05] MEDS: Insulin Glargine 30 UNITS/0.3 ML VIAL SC SCH (20:58)
[2023-11-06 06:45] LABS: Anion Gap 16 mmol/L (10-20); BUN (Urea Nitrogen) 69 mg/dL (8.4-25.7); Calc. Creatinine Clearance 35 mL/min (70-130); Calcium 8.9 mg/dL (7.8-10.44); Carbon Dioxide 22 mmol/L (23-31); Chloride 101 mmol/L (98-107); Estimated GFR 18; Glucose 185 mg/dL (80-115); Potassium 3.7 mmol/L (3.5-5.1); Sodium 135 mmol/L (136-145)
[2023-11-06] MEDS: Amiodarone 200 MG TAB PO SCH (09:37)
[2023-11-06] MEDS: Aspirin 81 mg Enteric Coated Tablet PO SCH (09:37)
[2023-11-06] MEDS: Lidocaine 4% Topical Sol 50 ML BOT TOP SCH ×2 (09:37→14:39)
[2023-11-06] MEDS: Allopurinol 100 MG TAB PO SCH (09:37)
[2023-11-06] MEDS: HumaLOG 300 UNITS/3 ML VIAL SC SCH ×2 (09:38→13:02)
[2023-11-06] MEDS: Polyethylene Glycol 3350 17 GM Packet PO SCH (09:38)
[2023-11-06 11:46] VITALS: BMI 35.9
[2023-11-06] MEDS: Iron, Sodium Ferric Gluconate 250 MG in Sodium Chloride 0.9% 250 ML 250 ML IVPB SCH (12:50)
[2023-11-06] MEDS: HumaLOG 300 UNITS/3 ML VIAL SC PRN (13:02)
[2023-11-06 15:52] VITALS: BP 112/73; TEMP 98
== END 2023-11-06 16:55 | disposition home or self-care (01) | DRG 166 ==
LOC: ERS 16:31 → 2SW 18:55 → OBSVTOIN 10-25 10:01 → SURG A 10-30 10:20 → 2SE 10-31 12:48
PROVIDERS: ADMIT Student in an Organized Health Care Education/Training Program; ATTEND Internal Medicine
PROC: 30233J1 Transfusion of Nonautologous Serum Albumin into Peripheral Vein, Percutaneous Approach (ICD-10-PCS; 2023-10-25)
PROC: 0W9B3ZZ Drainage of Left Pleural Cavity, Percutaneous Approach (ICD-10-PCS; principal; 2023-10-30)
PROC: 0W9B4ZZ Drainage of Left Pleural Cavity, Percutaneous Endoscopic Approach (ICD-10-PCS; 2023-10-30)
PROC: 4A033R1 Measurement of Arterial Saturation, Peripheral, Percutaneous Approach (ICD-10-PCS; 2023-10-30)
PROC: 3E033XZ Introduction of Vasopressor into Peripheral Vein, Percutaneous Approach (ICD-10-PCS; 2023-10-30)
PROC: 5A09357 Assistance with Respiratory Ventilation, Less than 24 Consecutive Hours, Continuous Positive Airway Pressure (ICD-10-PCS; 2023-10-30)
PROC: 0W9B40Z Drainage of Left Pleural Cavity with Drainage Device, Percutaneous Endoscopic Approach (ICD-10-PCS; 2023-10-30)
DX: J94.2 Hemothorax (principal); I50.23 Acute on chronic systolic (congestive) heart failure; J96.01 Acute respiratory failure with hypoxia; I13.0 Hypertensive heart and chronic kidney disease with heart failure and stage 1 through stage 4 chronic kidney disease, or unspecified chronic kidney disease; N17.9 Acute kidney failure, unspecified; I48.20 Chronic atrial fibrillation, unspecified; N18.4 Chronic kidney disease, stage 4 (severe); I42.9 Cardiomyopathy, unspecified; E87.21 Acute metabolic acidosis; J90 Pleural effusion, not elsewhere classified; N62 Hypertrophy of breast; I25.10 Atherosclerotic heart disease of native coronary artery without angina pectoris; Z95.1 Presence of aortocoronary bypass graft; Z79.82 Long term (current) use of aspirin; Z79.899 Other long term (current) drug therapy; Z79.4 Long term (current) use of insulin; Z79.01 Long term (current) use of anticoagulants; Z98.890 Other specified postprocedural states; E78.5 Hyperlipidemia, unspecified; E11.22 Type 2 diabetes mellitus with diabetic chronic kidney disease; M10.9 Gout, unspecified; K21.9 Gastro-esophageal reflux disease without esophagitis; H40.9 Unspecified glaucoma; E11.65 Type 2 diabetes mellitus with hyperglycemia; K59.00 Constipation, unspecified; E87.6 Hypokalemia; D63.1 Anemia in chronic kidney disease
CPT/HCPCS: 36415; 36416; 36600; 71045; 71250; 76705; 76770; 80048; 80053; 81001; 82040; 82570; 82728; 82805; 83540; 83550; 83735; 83880; 84145; 84156; 84484; 84540; 85014; 85018; 85025; 85049; 85060; 85610; 85730; 86850; 86900; 86901; 87070; 87205; 88112; 88305; 89051; 93005; 93306; 93798; 94660; 96374; 96376; G0378; J0171; J1642; J1650; J1815; J1940; J2405; J2704; J2916; J3010; J3490; J7050; J7620; P9045; P9047; Q0162; S0020